=== PATIENT | male | born 1990 | race Caucasian/White ===

== ENCOUNTER 2018-02-21 15:10 | Emergency (ER) | payer OTHER ==
[~2018-02-21] VITALS: Ht 170.2 cm; Wt 65.8 kg
[2018-02-21 15:15] VITALS: BP 115/68
--- NOTE | 2018-02-21 15:24 | NUR ---
ED Nurse Note: c/o feeling pressure pain over the face, sore throat, productive cough with green phlegm and back pain since this morning.
[2018-02-21 16:28] LABS: EOSINOPHILS % (AUTO) 0.4 % (0.0-3.0); HEMATOCRIT 43.9 % (42.0-52.0); HEMOGLOBIN 15.2 G/DL (14.2-18.0); MEAN CORPUSCULAR VOLUME 95 FL (80-99); MONOCYTES % (AUTO) 6.1 % (1.0-10.0); NEUTROPHILS % (AUTO) 73.6 % (45.0-75.0); PLATELET COUNT 203 K/UL (150-450); RED BLOOD COUNT 4.62 M/UL (4.70-6.10); WHITE BLOOD COUNT 8.3 K/UL (4.8-10.8)
[2018-02-21 16:30] LABS: APPEARANCE,URINE CLEAR; BILIRUBIN, URINE NEGATIVE (NEGATIVE); COLOR,URINE PALE YELLOW; GLUCOSE, URINE (UA) NEGATIVE (NEGATIVE); KETONES,URINE NEGATIVE (NEGATIVE); LEUKOCYTE ESTERASE ,URINE NEGATIVE (NEGATIVE); NITRITE,URINE NEGATIVE (NEGATIVE); PH,URINE 8 (4.5-8.0); PROTEIN,URINE NEGATIVE (NEGATIVE); UROBILINOGEN,URINE NORMAL MG/DL (0.0-1.0)
[2018-02-21 16:55] LABS: ANION GAP 10 mmol/L (5-15); BLOOD UREA NITROGEN 8 mg/dL (7-18); CALCIUM 9.1 MG/DL (8.5-10.1); CARBON DIOXIDE 25 MMOL/L (21-32); CHLORIDE 104 MMOL/L (98-107); CREATININE 0.7 MG/DL (0.55-1.30); POTASSIUM 4.4 MMOL/L (3.5-5.1); SODIUM 139 MMOL/L (136-145)
[2018-02-21 17:06] LABS: ALANINE AMINOTRANSFERASE 75 U/L (12-78); ALBUMIN 4.2 G/DL (3.4-5.0); ALBUMIN/GLOBULIN RATIO 1.1 (1.0-2.7); ALKALINE PHOSPHATASE 39 U/L (46-116); ASPARTATE AMINO TRANSFERASE 39 U/L (15-37); BILIRUBIN,TOTAL 1.3 MG/DL (0.2-1.0)
--- NOTE | 2018-02-21 17:08 | Diagnostic Imaging Report ---
EXAM: CT Head Without Intravenous Contrast CLINICAL HISTORY: PAIN TECHNIQUE: Axial computed tomography images of the head/brain without intravenous contrast. CTDI is 70 mGy and DLP is 1453 mGy-cm. One or more of the following dose reduction techniques were used: automated exposure control, adjustment of the mA and/or kV according to patient size, use of iterative reconstruction technique. COMPARISON: No relevant prior studies available. FINDINGS: Brain: Unremarkable. No hemorrhage. No edema. Ventricles: Unremarkable. No ventriculomegaly. Bones/joints: Unremarkable. No acute fracture. Soft tissues: Unremarkable. Sinuses: Unremarkable as visualized. Mastoid air cells: Unremarkable as visualized. IMPRESSION: No acute intracranial abnormality.
[2018-02-21 17:12] LABS: BILIRUBIN,DIRECT 0.1 MG/DL (0.0-0.3)
--- NOTE | 2018-02-21 17:22 | Emergency Room Report ---
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 Patient reports he has chronic low back pain and has been taking hydrocodone for years. Denies any new injury or fall. Patient reports sore throat, dry cough, headache, stiffness in the neck, sensitivity to light and radiating his neck pain and lower back pain 10 out of 10. Has not taken any medication for pain but on Suboxone. Patient is living at home with his mom. Sick contact. Complains of nausea and vomiting however denies abdominal pain and diarrhea. Patient years in moderate distress, complaining of loss of pain and mentions that the neck pain is radiating to his lower legs. Denies any ingestion of drugs or new medication. Plans of congestion and rhinorrhea G denies SOB, chest pain, palpitation Allergies: Coded Allergies: No Known Allergies (Unverified , 02/21/18) Patient History Past Medical History: see triage record Past Surgical History: none Pertinent Family History: none Reviewed Nursing Documentation: PMH: Agreed; PSxH: Agreed Nursing Documentation-PMH Past Medical History: No History, Except For Review of Systems All Other Systems: negative except mentioned in HPI Physical Exam Vital Signs Date Time Temp Pulse Resp B/P (MAP) Pulse Ox O2 Delivery O2 Flow Rate FiO2 02/21/18 15:15 98.2 101 20 115/68 97 Room Air Sp02 EP Interpretation: reviewed, normal General Appearance: alert, GCS 15, moderate distress Head: normocephalic, atraumatic Eyes: bilateral eye normal inspection, bilateral eye PERRL ENT: normal ENT inspection, hearing grossly normal, no angioedema, uvula midline, pharyngeal erythema Neck: supple, no meningismus, no bony tend, other - . He has resistance when palpating the neck Respiratory: normal inspection, lungs clear, no rhonchi, no retraction, no wheezing Cardiovascular #1: normal inspection, no edema, no murmur Gastrointestinal: normal inspection, soft, no mass, no organomegaly Rectal: deferred Genitourinary: deferred Musculoskeletal: back normal, digits/nails normal, gait/station normal, other - . He complains of bilateral leg pain when flexing his neck Neurologic: normal inspection, alert, oriented x3, responsive, detective automobile section III-XII nml as tested, DTRs symmetric, SLR negative Psychiatric: normal inspection, judgement/insight normal Skin: normal inspection, normal color, no rash, well hydrated Lymphatic: normal inspection, no adenopathy Medical Decision Making PA Attestation Diagnosis and treatment plans are reviewed and discussed by supervising physician Dr. Osei Diagnostic Impression: Primary Impression: Viral upper respiratory illness Additional Impression: Chronic back pain ER Course 28-year-old male with history of hydrocodone abuse currently on Suboxone here complaining of one day of body aches and worsening lower back pain. Patient reports he has chronic low back pain and has been taking hydrocodone for years. Denies any new injury or fall. Patient reports sore throat, dry cough, headache, stiffness in the neck, sensitivity to light and radiating his neck pain and lower back pain 10 out of 10. Has not taken any medication for pain but on Suboxone. Patient is living at home with his mom. Sick contact. Complains of nausea and vomiting however denies abdominal pain and diarrhea. Patient years in moderate distress, complaining of loss of pain and mentions that the neck pain is radiating to his lower legs. Denies any ingestion of drugs or new medication. Plans of congestion and rhinorrhea G denies SOB, chest pain, palpitation Ddx considered but are not limited to flulike symptoms, meningitis, chronic low back pain, strep pharyngitis viral URI Vital signs: are WNL, pt. is afebrile H&PE are most consistent with viral URI, chronic back pain ORDERS: head CT noncontrast, CBC, CMP, urine, urine tox,Tamiflu, Tessalon Perles ED INTERVENTIONS: patient has been put in the order for Tylenol and Zofran as he complains of continuous pain and nausea however is removed and inpatient as he mentions that he wants something stronger for pain. Patient's mom keeps insisting on pain and asking questions about the course of treatment patient is not a minor DISCHARGE: At this time pt. is stable for d/c to home. Will provide printed patient care instructions, and any necessary prescriptions. Care plan and follow up instructions have been discussed with the patient prior to discharge. patient is explained that he cannot speak to the staff member, patient's mom has been told that since patient is not a minor as providers and biomedical equipment specialist really have to talk to the patient's illness patient wants his mother to involve the course of treatment. Screaming and wanting to leave. I did explain that he has no meningitis cannot be given anything stronger for pain and his symptoms are related to a viral infection. The infection has exacerbated the chronic low back pain due to body aches. positive for benzodiazepines and TCH CT/MRI/US Diagnostic Results CT/MRI/US Diagnostic Results : Imaging Test Ordered: head CT noncontrast Impression COMPARISON: No relevant prior studies available. FINDINGS: Brain: Unremarkable. No hemorrhage. No edema. Ventricles: Unremarkable. No ventriculomegaly. Bones/joints: Unremarkable. No acute fracture. Soft tissues: Unremarkable. Sinuses: Unremarkable as visualized. Mastoid air cells: Unremarkable as visualized. IMPRESSION: No acute intracranial abnormality. Last Vital Signs Date Time Temp Pulse Resp B/P (MAP) Pulse Ox O2 Delivery O2 Flow Rate FiO2 02/21/18 15:15 101 20 Room Air 02/21/18 15:15 98.2 115/68 97 Disposition: HOME, SELF-CARE Condition: Stable Scripts Benzonatate* (TESSALON PERLE*) 100 Mg Capsule 100 MG ORAL THREE TIMES A DAY, #15 PERLE Prov: Dee Hunter 02/21/18 Oseltamivir Phosphate (Tamiflu) 75 Mg Capsule 75 MG ORAL BID for 5 Days, #10 CAP Prov: Dee Hunter 02/21/18 Referrals: Shailesh Esquivel MD (PCP) Patient Instructions: Back Pain, Adult, [id number], Upper Respiratory Infection, Adult, [id number] Additional Instructions: follow-up with a primary care provider for further assessment of chronic back pain, no sign of meningitis noted, follow-up with pain management for further assessment of your pain as you are already on Suboxone and hydrocodone. Dee Hunter Feb 21, 2018 17:22
[2018-02-21] MEDS ORDERED: TAMIFLU75 MG ORAL (17:24)
[2018-02-21] MEDS ORDERED: TESSALON PERLE100 MG ORAL (17:24)
[2018-02-21] MEDS ORDERED: Acetaminophen 500mg (ES) tab ORAL ONE (17:30)
[2018-02-21 17:34] VITALS: BP 115/68
--- NOTE | 2018-02-21 17:34 | NUR ---
ED Nurse Note: pt. got upset when he did not get a narcotic medication
--- NOTE | 2018-02-21 17:35 | NUR ---
ED Nurse Note: Patient is being discharged from medical care. Awake, alert and oriented x4. After care instructions, were given. Patient verbalized understanding of After care instructions. All medical devices such as ID band were removed. Patient ambulated out with all personal belongings with steady gait.
== END 2018-02-21 17:35 | disposition home or self-care (01) ==
LOC: EMR 15:45
DX: M54.5 Low back pain (principal); G89.29 Other chronic pain; J06.9 Acute upper respiratory infection, unspecified
CPT/HCPCS: 36415; 70450; 80053; 80307; 81001; 82248; 85025; 99284